=== PATIENT | female | born 1980 | race African-American/Black ===

== ENCOUNTER → 2019-08-08 | Outpatient (CLI) | payer OTHER | LOC: COL.RAD 10:50 | DX: M47.816 Spondylosis without myelopathy or radiculopathy, lumbar region (principal) ==

== ENCOUNTER → 2019-08-25 | Outpatient (CLI) | payer OTHER | LOC: COL.RAD 08:00 | DX: K59.00 Constipation, unspecified (principal) ==

== ENCOUNTER → 2019-08-30 | Outpatient (CLI) | payer OTHER | LOC: COL.RAD 08:00 | DX: K59.00 Constipation, unspecified (principal) ==